=== PATIENT | female | born 1985 | race Caucasian/White ===

== ENCOUNTER → 2021-07-03 | Emergency (ER) | payer OTHER ==
[~2021-07-03] VITALS: Ht 154.9 cm; Wt 52.2 kg
[~2021-07-03] MED LIST: DOLOGEN CAPLET1 EACH PO; DORYX100 MG PO; MEDROLPACK PO; TUSNEL LIQUID178 ML PO; TYLENOL W-CODEI1 TAB PO; ZITHROMAX500 MG PO
== END | disposition home or self-care (01) ==
LOC: ER 16:24
DX: T78.40XA Allergy, unspecified, initial encounter (principal); X58.XXXA Exposure to other specified factors, initial encounter; Y92.89 Other specified places as the place of occurrence of the external cause

== ENCOUNTER 2021-07-11 16:09 | Emergency (ER) | payer OTHER ==
[~2021-07-11] VITALS: Ht 154.9 cm; Wt 50.8 kg
[~2021-07-11 16:09] MED LIST changes: -DOLOGEN CAPLET1 EACH PO; -MEDROLPACK PO; -TUSNEL LIQUID178 ML PO; -ZITHROMAX500 MG PO
[2021-07-11] MEDS ORDERED: DOLOGEN CAPLET1 EACH PO (18:12)
[2021-07-11] MEDS ORDERED: MEDROLPACK PO (18:12)
[2021-07-11] MEDS ORDERED: TUSNEL LIQUID178 ML PO (18:12)
[2021-07-11] MEDS ORDERED: ZITHROMAX500 MG PO (18:12)
== END 2021-07-12 | disposition home or self-care (01) ==
LOC: ER 16:09
DX: U07.1 COVID-19 (principal)

== ENCOUNTER 2021-07-13 10:30 | Outpatient (CLI) | payer OTHER ==
[~2021-07-13 10:30] MED LIST changes: +DOLOGEN CAPLET1 EACH PO; +MEDROLPACK PO; +TUSNEL LIQUID178 ML PO; +ZITHROMAX500 MG PO
== END 2021-07-13 11:00 | disposition home or self-care (01) ==
LOC: ASH CLINIC 10:30
PROVIDERS: ATTEND General Practice
DX: U07.1 COVID-19 (principal); Z23 Encounter for immunization

== ENCOUNTER 2021-10-23 08:00 | Outpatient (CLI) | payer OTHER | END 2021-10-23 08:30 | disposition home or self-care (01) | LOC: PPH VACUNA 08:00 | PROVIDERS: ATTEND Emergency Medicine Pediatric Emergency Medicine | DX: Z23 Encounter for immunization (principal) ==

== ENCOUNTER 2022-06-12 14:43 | Outpatient (CLI) | payer OTHER | END 2022-06-12 14:59 | disposition home or self-care (01) | LOC: MRI 14:43 | PROVIDERS: ATTEND Physical Medicine & Rehabilitation | DX: M25.512 Pain in left shoulder (principal) | CPT/HCPCS: 73223 ==

== ENCOUNTER 2022-07-08 15:35 | Outpatient (CLI) | payer OTHER | END 2022-07-08 15:53 | disposition home or self-care (01) | LOC: RAD 15:35 | PROVIDERS: ATTEND Orthopaedic Surgery | DX: M25.561 Pain in right knee (principal); M25.562 Pain in left knee; M23.300 Other meniscus derangements, unspecified lateral meniscus, right knee; M75.112 Incomplete rotator cuff tear or rupture of left shoulder, not specified as traumatic | CPT/HCPCS: 73721 ==

== ENCOUNTER 2022-09-25 07:58 | Outpatient (CLI) | payer OTHER ==
[~2022-09-25 07:58] MED LIST changes: +CELEBREX200MG PO; +METAXALONE800 MG PO
== END 2022-09-25 08:08 | disposition home or self-care (01) ==
LOC: RAD 07:58
PROVIDERS: ATTEND General Practice
DX: M54.2 Cervicalgia (principal); M54.59 Other low back pain

== ENCOUNTER 2023-06-10 13:53 | Outpatient (CLI) | payer OTHER | END 2023-06-10 14:03 | disposition home or self-care (01) | LOC: RAD 13:53 | PROVIDERS: ATTEND Emergency Medicine | DX: Z00.00 Encounter for general adult medical examination without abnormal findings (principal) ==

== ENCOUNTER 2024-07-22 12:29 | Outpatient (CLI) | payer OTHER | END 2024-07-22 12:37 | disposition home or self-care (01) | LOC: SONOGRAMA 12:29 | DX: N92.6 Irregular menstruation, unspecified (principal); N93.8 Other specified abnormal uterine and vaginal bleeding; N93.9 Abnormal uterine and vaginal bleeding, unspecified ==

== ENCOUNTER → 2025-06-01 | Outpatient (CLI) | payer OTHER | END | disposition home or self-care (01) | LOC: RAD 15:12 | DX: M70.51 Other bursitis of knee, right knee (principal); M25.551 Pain in right hip ==

== ENCOUNTER 2025-06-13 09:25 | Outpatient (CLI) | payer OTHER | END 2025-06-13 09:59 | disposition home or self-care (01) | LOC: MRI 09:25 | PROVIDERS: ATTEND Orthopaedic Surgery | DX: M25.561 Pain in right knee (principal); M23.91 Unspecified internal derangement of right knee | CPT/HCPCS: 73721 ==